=== PATIENT | male | born 1990 | race Caucasian/White ===

== ENCOUNTER 2024-10-01 10:14 | Emergency (ER) | payer BC, OTHER ==
[~2024-10-01] VITALS: Ht 175.3 cm; Wt 70.0 kg
[2024-10-01 11:07] VITALS: BP 140/99; PULSE 58; RESP 16; TEMP 98.1; O2SAT 97
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
== END 2024-10-01 14:27 | disposition home or self-care (01) ==
LOC: ER 10:14
DX: S43.102A Unspecified dislocation of left acromioclavicular joint, initial encounter (principal); V98.8XXA Other specified transport accidents, initial encounter; Y93.55 Activity, bike riding; Y92.488 Other paved roadways as the place of occurrence of the external cause; Y99.8 Other external cause status
CPT/HCPCS: 73030